=== PATIENT | female | born 1970 | race Caucasian/White ===

== ENCOUNTER 2016-09-05 21:40 | Emergency (ER) | payer OTHER ==
[~2016-09-05] VITALS: Ht 157.5 cm; Wt 93.4 kg
[2016-09-05 22:00] VITALS: BP 138/89
[2016-09-05 22:37] VITALS: BP 138/89
--- NOTE | 2016-09-06 02:47 | Emergency Room Report ---
History of Present Illness General Chief Complaint: General Complaint Source: EMS Present Illness HPI 46-year-old female presents to ED for evaluation. Patient brought in by EMS. She resides in [facility] facility. Patient states her throat feels closed off and she is having trouble breathing. Patient is complaining of cough and congestion. Denies any fevers or chills. States cough is dry. Denies chest pain shortness of breath. Denies sick contacts or recent travel. Denies any other associated symptoms Allergies: Coded Allergies: No Known Allergies (Unverified , 09/05/16) Patient History Past Medical History: HTN, psych hx Past Surgical History: none Pertinent Family History: none Social History: Denies: alcohol use, drug use, smoking Now: No Immunizations: UTD Reviewed Nursing Documentation: PMH: Agreed, PSxH: Agreed Nursing Documentation-PMH Past Medical History: No History, Except For Hx Hypertension: Yes History Of Psychiatric Problem: Yes - SCHIZOPHRENIA Review of Systems All Other Systems: negative except mentioned in HPI Physical Exam Vital Signs Date Time Temp Pulse Resp B/P Pulse Ox O2 Delivery O2 Flow Rate FiO2 09/05/16 21:18 74 12 138/89 98 Room Air Sp02 EP Interpretation: reviewed, normal General Appearance: no apparent distress, alert, GCS 15, non-toxic Head: normocephalic Eyes: bilateral eye PERRL, bilateral eye normal inspection ENT: hearing grossly normal, normal pharynx, no angioedema, normal voice Neck: full range of motion, supple/symm/no masses Respiratory: chest non-tender, lungs clear, normal breath sounds, speaking full sentences Cardiovascular #1: regular rate, rhythm, no edema Gastrointestinal: normal inspection Rectal: deferred Genitourinary: no CVA tenderness Musculoskeletal: normal inspection Neurologic: alert, oriented x3, responsive, motor strength/tone normal, sensory intact, speech normal Psychiatric: normal inspection Skin: normal inspection Lymphatic: normal inspection Medical Decision Making Diagnostic Impression: Primary Impression: Upper respiratory infection Qualified Codes: J06.9 - Acute upper respiratory infection, unspecified ER Course Hospital Course 46 year-old female presents to ED complaining of cough, runny nose with congestion Differential diagnoses include: URI, pharyngitis, otitis media, asthma Clinical course Patient placed on stretcher. After initial history, physical exam reveals a middle aged female in no acute distress. Bilateral TM unremarkable. No pharyngeal erythema. No tonsillar exudates. No lymphadenopathy. lungs clear. abdomen soft. Airways patent Clinical findings consistent with URI. Reassurance given Diagnosis - URI Stable and discharged home. Instructed to followup with PMD. Return to ED if symptoms recur or worsen Last Vital Signs Date Time Temp Pulse Resp B/P Pulse Ox O2 Delivery O2 Flow Rate FiO2 09/05/16 22:37 12 138/89 98 Room Air 09/05/16 21:18 74 Status: improved Disposition: HOME, SELF-CARE Condition: Stable Referrals: [facility]ERR[facility] (PCP) Patient Instructions: Upper Respiratory Infection, Adult, [id number] CHRISTEN CARLOS M.D. Sep 06, 2016 02:47
== END 2016-09-05 22:37 | disposition home or self-care (01) ==
LOC: EDBD 21:40 → EMR 22:01
DX: J06.9 Acute upper respiratory infection, unspecified (principal); I10 Essential (primary) hypertension; F20.9 Schizophrenia, unspecified
CPT/HCPCS: 99282

== ENCOUNTER 2018-02-19 14:47 | Emergency (ER) | payer OTHER ==
[~2018-02-19] VITALS: Ht 160 cm; Wt 94.3 kg
[2018-02-19 15:07] VITALS: BP 123/82
--- NOTE | 2018-02-19 15:22 | Emergency Room Report ---
History of Present Illness General Chief Complaint: Female Urogenital Problems Source: Patient, EMS Present Illness HPI 47-year-old female presents ED for evaluation. [facility] Patient noting pelvic pain. States that when she bent down today she felt a tearing in her pelvic area. Pain is throbbing, 8 out of 10, nonradiating. Denies any vaginal bleeding or discharge. Denies any nausea or vomiting. Patient has history of schizophrenia. Denies hearing voices. Denies any suicidal or homicidal ideation. No other aggravating relieving factors. Denies any other associated symptoms Allergies: Coded Allergies: No Known Allergies (Unverified , 09/05/16) Patient History Past Medical History: HTN, psych hx Past Surgical History: none Pertinent Family History: none Social History: Denies: smoking, alcohol use, drug use Last Menstrual Period: NA Now: No Immunizations: UTD Reviewed Nursing Documentation: PMH: Agreed; PSxH: Agreed Nursing Documentation-PMH Past Medical History: No History, Except For Hx Hypertension: Yes History Of Psychiatric Problem: Yes - Schizophrenia Review of Systems All Other Systems: negative except mentioned in HPI Physical Exam Vital Signs Date Time Temp Pulse Resp B/P (MAP) Pulse Ox O2 Delivery O2 Flow Rate FiO2 02/19/18 14:37 98.4 96 16 123/82 96 Room Air 98.4 Sp02 EP Interpretation: reviewed, normal General Appearance: no apparent distress, alert, GCS 15, non-toxic Head: normocephalic Eyes: bilateral eye normal inspection, bilateral eye PERRL ENT: normal ENT inspection Neck: normal inspection Respiratory: normal inspection Cardiovascular #1: normal inspection Gastrointestinal: normal bowel sounds, non tender, soft, non-distended, no guarding, no rebound Rectal: deferred Genitourinary: adnexa normal, cervix normal, other - accounting coordinator present Musculoskeletal: normal inspection Neurologic: alert, oriented x3, responsive, motor strength/tone normal, sensory intact, speech normal Psychiatric: anxious Skin: normal inspection Lymphatic: normal inspection Medical Decision Making Diagnostic Impression: Primary Impression: Pelvic pain ER Course Hospital Course 47-year-old female presents to ED complaining of ripping sensation in her pelvic area. Denies bleeding or discharge Differential diagnoses include: Cervicitis, UTI, yeast infection, STD Clinical course Patient placed on stretcher in ED. After initial history, physical exam reveals a middle-aged female in no acute distress. Pelvic exam-accounting coordinator present, os is closed, no CMT, no adnexal tenderness. no evidence of tear or bleeding. No discharge noted. Reassurance given to patient. No further workup indicated at this time. patient will be discharged back to SNF Diagnosis - pelvic pain Stable and discharged to SNF. Followup with PMD/OFFSET PRESS OPERATOR. Return to ED if symptoms recur or worsen Last Vital Signs Date Time Temp Pulse Resp B/P (MAP) Pulse Ox O2 Delivery O2 Flow Rate FiO2 02/19/18 15:07 96 18 123/82 96 Room Air 02/19/18 14:37 98.4 98.4 Status: improved Disposition: [facility] Condition: Stable Cory Centeno MD Feb 19, 2018 15:22
[2018-02-19 17:10] VITALS: BP 123/82
== END 2018-02-19 16:40 ==
LOC: EDBD 14:47 → EMR 15:30
DX: R10.2 Pelvic and perineal pain (principal); I10 Essential (primary) hypertension; F20.9 Schizophrenia, unspecified
CPT/HCPCS: 99283

== ENCOUNTER 2020-03-29 20:37 | Emergency (ER) | payer OTHER ==
[~2020-03-29] VITALS: Ht 165.1 cm; Wt 86.2 kg
[2020-03-29 20:40] VITALS: BP 127/79
--- NOTE | 2020-03-29 20:42 | NUR ---
ED Nurse Note: pt miguelina from [facility] for anxiety. PT states that she has felt increasing anxiety since this afternoon. Pt aao x 4, presents as restless, apprehensive, diaphoretic and states her anxiety is now unmanageable. Pt states that she regularly takes risperal and haldol via injections at facility. Pt states that she "needs a pen and paper to better communicate." Pt appears to have trouble verbalizing her distress. Awaiting ERMD at bedside.
--- NOTE | 2020-03-29 20:43 | NUR ---
ED Nurse Note: pt asked RN to step out of the room while RN attempted to place pt on monitor. Pt states that she "needs some room to think." Will continue to monitor.
--- NOTE | 2020-03-29 20:55 | NUR ---
ED Nurse Note: pt ambulated to restroom in stable condition. will continue to monitor.
--- NOTE | 2020-03-29 21:18 | Emergency Room Report ---
History of Present Illness General Chief Complaint: Behavioral Complaint Source: Patient Present Illness HPI Disclaimer: Please note that this report is being documented using [employer]Jar technology. This can lead to erroneous entry secondary to incorrect interpretation by the dictating instrument. HPI: 49-year-old female with history of multiple psychiatric conditions including anxiety presents from her long-term care facility for evaluation of acute anxiety. Patient states that she was having a headache earlier but is now improving. She was not given her anxiety meds today according to patient. States she was "freaking out" looking at some dolls earlier but is much calmer now. She would like some Ativan some Motrin and something to eat. She denies any chest pain, shortness of breath, nausea, vomiting, diarrhea, fever, chills or other changes in her health. She denies SI or HI. She denies hallucinations. PMH: Psychiatric disease PSH: Reviewed Allergies: Reviewed Social Hx: Reviewed Allergies: Coded Allergies: No Known Allergies (Unverified , 09/05/16) COVID-19 Screening Contact w/high risk pt: No Experienced COVID-19 symptoms?: No COVID-19 Testing performed FORGING DIES FINAL FINISHER: No Patient History Last Menstrual Period: unk Nursing Documentation-PMH Hx Hypertension: Yes Review of Systems All Other Systems: negative except mentioned in HPI Physical Exam Vital Signs Date Time Temp Pulse Resp B/P (MAP) Pulse Ox O2 Delivery O2 Flow Rate FiO2 03/29/20 20:31 97.9 119 18 127/79 (95) 96 Room Air General: Awake and alert, anxious appearing HEENT: NC/AT. EOMI. Cardiovascular: Tachycardic. S1 and S2 normal. No murmur appreciated Resp: Normal work of breathing. No cough, wheezing or crackles appreciated Abdomen: Abdomen is soft, nondistended. Nontender Skin: Intact. No abrasions, laceration or rash over the exposed skin MSK: Normal tone and bulk. Moving all extremities. No obvious deformity. Neuro: Awake and alert. Anxious appearing. Tangential thinking but able to recall today's events coherently. Does not appear to be responding to internal stimuli. Denies SI/HI. Medical Decision Making Diagnostic Impression: Primary Impression: Anxiety Additional Impression: UTI (urinary tract infection) ER Course 49-year-old female presents from long-term care facility for evaluation of acute anxiety. Patient states he was not given her medications today and does appear mildly anxious arrives tachycardic but in no acute distress. States her headache is now improving but would like some Motrin and something to eat as she states she has not eaten today. Labs were obtained and returned largely within normal limits though do show evidence of an acute urinary tract infection. She was treated with Keflex. Patient was tachycardic but troponin is negative and EKG does not show acute signs of ischemia. Patient is ambulating without difficulty and is behaving appropriately in the emergency department. Will return to her assisted living facility further treated with Keflex for UTI. We will follow-up with her PMD. She will return with new or worsening symptoms. Laboratory Tests Test 03/29/20 21:40 03/29/20 21:50 White Blood Count 10.8 K/UL (4.8-10.8) Red Blood Count 5.00 M/UL (4.20-5.40) Hemoglobin 14.4 G/DL (12.0-16.0) Hematocrit 43.6 % (37.0-47.0) Mean Corpuscular Volume 87 FL (80-99) Mean Corpuscular Hemoglobin 28.8 PG (27.0-31.0) Mean Corpuscular Hemoglobin Concent 33.0 G/DL (32.0-36.0) Red Cell Distribution Width 12.9 % (11.6-14.8) Platelet Count 268 K/UL (150-450) Mean Platelet Volume 8.1 FL (6.5-10.1) Neutrophils (%) (Auto) 80.0 % (45.0-75.0) H Lymphocytes (%) (Auto) 14.0 % (20.0-45.0) L Monocytes (%) (Auto) 4.5 % (1.0-10.0) Eosinophils (%) (Auto) 0.6 % (0.0-3.0) Basophils (%) (Auto) 0.9 % (0.0-2.0) Sodium Level 139 MMOL/L (136-145) Potassium Level 3.2 MMOL/L (3.5-5.1) L Chloride Level 104 MMOL/L (98-107) Carbon Dioxide Level 24 MMOL/L (21-32) Anion Gap 11 mmol/L (5-15) Blood Urea Nitrogen 9 mg/dL (7-18) Creatinine 0.9 MG/DL (0.55-1.30) Estimated Glomerular Filtration Rate > 60 mL/min (>60) Glucose Level 123 MG/DL (74-106) H Calcium Level 9.0 MG/DL (8.5-10.1) Total Bilirubin 0.5 MG/DL (0.2-1.0) Aspartate Amino Transferase (AST) 17 U/L (15-37) Alanine Aminotransferase (ALT) 25 U/L (12-78) Alkaline Phosphatase 88 U/L (46-116) Troponin I 0.000 ng/mL (0.000-0.056) Total Protein 7.4 G/DL (6.4-8.2) Albumin 3.8 G/DL (3.4-5.0) Globulin 3.6 g/dL Albumin/Globulin Ratio 1.1 (1.0-2.7) Salicylates Level 0.8 ug/mL (2.8-20) L Acetaminophen Level < 2 MCG/ML (10-30) L Serum Alcohol < 3 mg/dL Urine Color Yellow Urine Appearance Slightly cloudy Urine pH 6 (4.5-8.0) Urine Specific [place] 1.025 (1.005-1.035) Urine Protein 1+ (NEGATIVE) H Urine Glucose (UA) Negative (NEGATIVE) Urine Ketones 2+ (NEGATIVE) H Urine Blood Negative (NEGATIVE) Urine Nitrite Negative (NEGATIVE) Urine Bilirubin Negative (NEGATIVE) Urine Urobilinogen Normal MG/DL (0.0-1.0) Urine Leukocyte Esterase 2+ (NEGATIVE) H Urine RBC 0-2 /HPF (0 - 2) Urine WBC 15-20 /HPF (0 - 2) H Urine Squamous Epithelial Cells Many /LPF (NONE/OCC) H Urine Calcium Oxalate Crystals Many /LPF (NONE) Urine Bacteria Moderate /HPF (NONE) H Urine Opiates Screen Negative (NEGATIVE) Urine Barbiturates Screen Negative (NEGATIVE) Phencyclidine (PCP) Screen Negative (NEGATIVE) Urine Amphetamines Screen Negative (NEGATIVE) Urine Benzodiazepines Screen Negative (NEGATIVE) Urine Cocaine Screen Negative (NEGATIVE) Urine Marijuana (THC) Screen Negative (NEGATIVE) EKG Diagnostic Results EKG Time: 22:10 Rate: tachycardiac Rhythm: NSR ST Segments: no acute changes Other Impression Sinus rhythm, slight rightward axis, normal intervals, no ST segment changes. Rhythm Strip Diag. Results Rhythm Strip Time: 22:10 EP Interpretation: yes Rate: 120s Rhythm: NSR, no PVC's, no ectopy Last Vital Signs Date Time Temp Pulse Resp B/P (MAP) Pulse Ox O2 Delivery O2 Flow Rate FiO2 03/29/20 20:31 97.9 119 18 127/79 (95) 96 Room Air Disposition: HOME, SELF-CARE Condition: Stable Scripts Cephalexin* (KEFLEX*) 500 Mg Capsule 500 MG ORAL EVERY 12 HOURS, #14 CAP 0 Refills Prov: Ezra Orellana MD 03/29/20 Ezra Orellana MD Mar 29, 2020 21:18
--- NOTE | 2020-03-29 21:20 | NUR ---
ED Nurse Note: ERMD at bedside
[2020-03-29] MEDS ORDERED: LORazepam 1mg tab ORAL ONE (21:30)
--- NOTE | 2020-03-29 21:30 | NUR ---
ED Nurse Note: All medications administered, pt tolerated well no ss of distress noted. will continue to monitor.
--- NOTE | 2020-03-29 21:50 | NUR ---
ED Nurse Note: blood work and urine sent to lab
[2020-03-29 21:54] LABS: BASOPHILS % (AUTO) 0.9 % (0.0-2.0); EOSINOPHILS % (AUTO) 0.6 % (0.0-3.0); HEMATOCRIT 43.6 % (37.0-47.0); HEMOGLOBIN 14.4 G/DL (12.0-16.0); MEAN CORPUSCULAR VOLUME 87 FL (80-99); MONOCYTES % (AUTO) 4.5 % (1.0-10.0); PLATELET COUNT 268 K/UL (150-450); RED CELL DISTRIBUTION WIDTH 12.9 % (11.6-14.8); WHITE BLOOD COUNT 10.8 K/UL (4.8-10.8)
[2020-03-29 22:00] LABS: APPEARANCE,URINE SLIGHTLY CLOUDY; BILIRUBIN, URINE NEGATIVE (NEGATIVE); GLUCOSE, URINE (UA) NEGATIVE (NEGATIVE); KETONES,URINE 2+ (NEGATIVE); LEUKOCYTE ESTERASE ,URINE 2+ (NEGATIVE); NITRITE,URINE NEGATIVE (NEGATIVE); PH,URINE 6 (4.5-8.0); PROTEIN,URINE 1+ (NEGATIVE); UROBILINOGEN,URINE NORMAL MG/DL (0.0-1.0)
[2020-03-29 22:01] LABS: COLOR,URINE YELLOW
--- NOTE | 2020-03-29 22:10 | NUR ---
ED Nurse Note: EKG performed by RN
[2020-03-29 22:13] LABS: ANION GAP 11 mmol/L (5-15); BLOOD UREA NITROGEN 9 mg/dL (7-18); CARBON DIOXIDE 24 MMOL/L (21-32); CHLORIDE 104 MMOL/L (98-107); CREATININE 0.9 MG/DL (0.55-1.30); POTASSIUM 3.2 MMOL/L (3.5-5.1); SODIUM 139 MMOL/L (136-145)
[2020-03-29] MEDS ORDERED: CEPHALEXIN500 MG ORAL (22:13)
[2020-03-29] MEDS ORDERED: Cephalexin 250mg/5ml Susp 100mL Bottle ORAL ONE (22:15)
--- NOTE | 2020-03-29 22:15 | NUR ---
ED Nurse Note: All medications administered, pt tolerated well no ss of distress noted. will continue to monitor.
[2020-03-29 22:18] LABS: ALANINE AMINOTRANSFERASE 25 U/L (12-78); ALBUMIN 3.8 G/DL (3.4-5.0); ALBUMIN/GLOBULIN RATIO 1.1 (1.0-2.7); ALKALINE PHOSPHATASE 88 U/L (46-116); ASPARTATE AMINO TRANSFERASE 17 U/L (15-37); BILIRUBIN,TOTAL 0.5 MG/DL (0.2-1.0)
--- NOTE | 2020-03-29 22:30 | NUR ---
ED Nurse Note: ERMD at bedside
[2020-03-29 22:39] VITALS: BP 145/86
[2020-03-29 23:00] VITALS: BP 142/83
--- NOTE | 2020-03-29 23:00 | NUR ---
ER DISCHARGE NOTE: Patient is cleared to be discharged to [facility] per ERMD, pt is aox4, 98% on room air, with stable vital signs. pt was given dc and prescription instructions, pt was able to verbalize understanding, pt id band removed. pt is able to ambulate with steady gait. pt took all belongings. pt transported home via taxi per [facility].
== END 2020-03-29 23:00 ==
LOC: EDBD 20:37 → EMR 21:16
DX: F41.9 Anxiety disorder, unspecified (principal); N39.0 Urinary tract infection, site not specified; R00.0 Tachycardia, unspecified
CPT/HCPCS: 36415; 80053; 80307; 81003; 84484; 85025; 87086; 93005; G0480; G0481; Z7502; 99284

== ENCOUNTER 2020-05-27 13:38 | Emergency (ER) | payer OTHER ==
[~2020-05-27] VITALS: Ht 157.5 cm; Wt 96.6 kg
[~2020-05-27 13:38] MED LIST: CEPHALEXIN500 MG ORAL
[2020-05-27 13:49] VITALS: BP 134/87
--- NOTE | 2020-05-27 14:46 | Emergency Room Report ---
History of Present Illness General Chief Complaint: General Complaint Source: Patient Present Illness Allergies: Coded Allergies: No Known Allergies (Unverified , 09/05/16) COVID-19 Screening Contact w/high risk pt: No Experienced COVID-19 symptoms?: No COVID-19 Testing performed TRUSS PULLER HELPER: No Nursing Documentation-[facility] Past Medical History: No History, Except For Hx Hypertension: Yes Physical Exam Vital Signs Date Time Temp Pulse Resp B/P (MAP) Pulse Ox O2 Delivery O2 Flow Rate FiO2 05/27/20 13:49 98.1 130 15 134/87 (103) 99 Room Air Medical Decision Making Diagnostic Impression: Primary Impression: Patient left without being seen Last Vital Signs Date Time Temp Pulse Resp B/P (MAP) Pulse Ox O2 Delivery O2 Flow Rate FiO2 05/27/20 13:49 98.1 130 15 134/87 (103) 99 Room Air Disposition: LEFT W/OUT BEING SEEN Cecilia Farley DO May 27, 2020 14:46
== END 2020-05-27 14:15 | disposition left against medical advice (07) ==
LOC: EMR 14:00
DX: Z53.21 Procedure and treatment not carried out due to patient leaving prior to being seen by health care provider (principal); I10 Essential (primary) hypertension

== ENCOUNTER 2020-05-27 15:25 | Emergency (ER) | payer OTHER ==
[~2020-05-27] VITALS: Ht 167.6 cm; Wt 100.7 kg
--- NOTE | 2020-05-27 15:30 | NUR ---
ED Nurse Note: Pt ambulated to ED d/t anxiety attack started today. Pt is AOx3, appears to be anxious, repetitively stands up and sits on her chair; pt's VSS, appears to be tachycardiac around 115-125bpm, breathing even and unlabored, afebrile on triage. Placed on bed, safety measures in placed.
[2020-05-27 15:47] VITALS: BP 135/79
[2020-05-27] MEDS ORDERED: ZyPREXA Zydis 10mg tab ORAL ONE (16:45)
--- NOTE | 2020-05-27 17:12 | NUR ---
ED Nurse Note: blood and urine collected, sent to lab
[2020-05-27 17:31] LABS: ANION GAP 12 mmol/L (5-15); BLOOD UREA NITROGEN 7 mg/dL (7-18); CARBON DIOXIDE 23 MMOL/L (21-32); CHLORIDE 108 MMOL/L (98-107); CREATININE 0.9 MG/DL (0.55-1.30); POTASSIUM 3.5 MMOL/L (3.5-5.1); SODIUM 143 MMOL/L (136-145)
[2020-05-27 17:37] LABS: APPEARANCE,URINE CLOUDY; BILIRUBIN, URINE NEGATIVE (NEGATIVE); GLUCOSE, URINE (UA) NEGATIVE (NEGATIVE); KETONES,URINE 1+ (NEGATIVE); LEUKOCYTE ESTERASE ,URINE 2+ (NEGATIVE); NITRITE,URINE NEGATIVE (NEGATIVE); PH,URINE 5 (4.5-8.0); PROTEIN,URINE 1+ (NEGATIVE); UROBILINOGEN,URINE NORMAL MG/DL (0.0-1.0)
[2020-05-27 17:38] LABS: BASOPHILS % (AUTO) 0.6 % (0.0-2.0); EOSINOPHILS % (AUTO) 0.1 % (0.0-3.0); HEMATOCRIT 44.8 % (37.0-47.0); LYMPHOCYTES % (AUTO) 13.1 % (20.0-45.0); MEAN CORPUSCULAR VOLUME 86 FL (80-99); NEUTROPHILS % (AUTO) 83.1 % (45.0-75.0); PLATELET COUNT 308 K/UL (150-450); RED BLOOD COUNT 5.19 M/UL (4.20-5.40); RED CELL DISTRIBUTION WIDTH 12.2 % (11.6-14.8); WHITE BLOOD COUNT 10.1 K/UL (4.8-10.8)
[2020-05-27 17:39] LABS: COLOR,URINE PALE YELLOW
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
[2020-05-27 17:47] LABS: ALANINE AMINOTRANSFERASE 20 U/L (12-78); ALBUMIN 3.9 G/DL (3.4-5.0); ALKALINE PHOSPHATASE 91 U/L (46-116); ASPARTATE AMINO TRANSFERASE 14 U/L (15-37); BILIRUBIN,TOTAL 0.5 MG/DL (0.2-1.0)
--- NOTE | 2020-05-27 19:06 | NUR ---
ED Nurse Note: Report given to ALECIA Jay
--- NOTE | 2020-05-27 19:29 | NUR ---
ED Nurse Note: Provided patient with water and sandwich, no acute distress noted.
[2020-05-27 20:08] VITALS: BP 122/85
--- NOTE | 2020-05-27 20:08 | NUR ---
ED Nurse Note: Patient ambulated to restroom, provided with juice, no acute distress noted.
--- NOTE | 2020-05-27 20:40 | NUR ---
ED Nurse Note: Offered blanket to patient, patient declined. no acute distress noted, patient remains cooperative, will continue to monitor.
[2020-05-27 23:10] VITALS: BP 128/79
--- NOTE | 2020-05-27 23:10 | NUR ---
ER DISCHARGE NOTE: Patient opted to go home, ERMD and charge nurse aware d/t patient is voluntary. pt is cleared to be discharged per ERMD, pt is aox4, on room air, with stable vital signs. pt was given dc instructions, pt was able to verbalize understanding, pt id band and iv site removed intact without complications. pt is able to ambulate with steady gait. pt took all belongings. pt stable upon discharge.
--- NOTE | 2020-06-04 16:08 | Cardiology Report ---
APPROVED REPORT EKG Measurement Heart [id number] <Conclusion> Sinus tachycardia Nonspecific ST abnormality Abnormal ECG
== END 2020-05-27 23:10 | disposition home or self-care (01) ==
LOC: EMR 16:38
DX: F41.9 Anxiety disorder, unspecified (principal); F91.9 Conduct disorder, unspecified; I10 Essential (primary) hypertension; R00.0 Tachycardia, unspecified
CPT/HCPCS: 36415; 80053; 80307; 81003; 84439; 84443; 84481; 84484; 85025; 93005; G0480; G0481; U0002; Z7502; 99284